=== PATIENT | male | born 1945 | race Caucasian/White ===

== ENCOUNTER 2019-06-11 05:30 | Day surgery (SDC) | payer MEDICARE ==
[~2019-06-11] VITALS: Ht 172.7 cm; Wt 89.8 kg
[~2019-06-11 05:30] MED LIST: AMLO5TAB6 PO; ATOR1TAB21 PO; BISO5TAB2 PO; GABA-1171 PO; GLYB5TA PO; INVO100T PO; METF10004 PO; PIOG1TAB55 PO; TRAD5TAB PO
[2019-06-11] MEDS ORDERED: LR 1,000 ML IV ONE (06:00)
[2019-06-11] MEDS ORDERED: ceFAZolin SOD 2 GM in IV 1 EA IV ONE (06:00)
[2019-06-11] MEDS ORDERED: BACITRACIN OINT 30GM As Ordered ONE (07:10)
[2019-06-11] MEDS ORDERED: MIDAZOLAM INJ 2 MG/2 ML VIAL (J2250) As Ordered ONE (07:19)
[2019-06-11] MEDS ORDERED: propofoL 200 MG/20 ML VIAL As Ordered ONE (07:19)
[2019-06-11] MEDS ORDERED: dexameTHASONE 4 MG/ML 1ML VIAL (J1100) As Ordered ONE (07:19)
[2019-06-11] MEDS ORDERED: fentaNYL 100 MCG/2 ML INJECTION (J3010) As Ordered ONE (07:19)
[2019-06-11] MEDS ORDERED: ONDANSETRON 4MG/2ML VIAL (J2405) As Ordered ONE (07:19)
[2019-06-11] MEDS ORDERED: LIDOCAINE 2% INJ 100 MG/5 ML SDV (FOR ANES.) As Ordered ONE (07:19)
[2019-06-11] MEDS ORDERED: ePHEDrine SULFATE 25 MG/5 ML(5MG/ML) SYRINGE As Ordered ONE (08:05)
[2019-06-11] MEDS ORDERED: PHENYLephrine HCL 500 MCG/5 ML (100MCG/ML) SYRINGE (J2370) As Ordered ONE (08:05)
[2019-06-11] MEDS ORDERED: METOCLOPRAMIDE INJ 10MG/2ML VIAL (J2765) IV PRN (09:15)
[2019-06-11] MEDS ORDERED: fentaNYL 100 MCG/2 ML INJECTION (J3010) IV PRN (09:15)
[2019-06-11] MEDS ORDERED: LR 1,000 ML IV SCH (09:15)
[2019-06-11] MEDS ORDERED: ONDANSETRON 4MG/2ML VIAL (J2405) IV PRN (09:15)
[2019-06-11] MEDS ORDERED: PERCOCET 5MG/325MG TAB PO PRN ×2 (09:15→09:30)
[2019-06-11 10:35] VITALS: BP 125/58
--- NOTE | 2019-06-11 18:12 | RO ---
DATE OF PROCEDURE: 06/11/2019 PREPROCEDURE DIAGNOSIS: Phimosis. POSTPROCEDURE DIAGNOSIS: Phimosis. PROCEDURE: Circumcision. SURGEON: Wagner Suh MD IRON GUARDRAIL INSTALLER: None. ANESTHESIA: General. OPERATIVE INDICATIONS: This is a 73-year-old male who has been having difficulty retracting his foreskin due to a tight phimotic ring. He was brought to the operating room today for circumcision. DESCRIPTION OF PROCEDURE: The patient was brought to the operating room and general anesthesia induced. Prophylactic antibiotics were infused. He was then placed in the supine position and prepped and draped in the usual sterile fashion. At this point, circumcising incisions were made with the foreskin retracted over the glans at the level of the coronal sulcus and then also on the foreskin with it retracted downward also at the level of the coronal sulcus. All the skin in between the circumcising incisions was then excised using the electrocautery. Any small bleeding blood vessels were controlled with electrocautery. Once satisfied with hemostasis, the skin of the penile shaft was then reapproximated to the glans penis using interrupted #2-0 chromic sutures. Once the skin was reapproximated, dressings were applied and this marked the conclusion of the procedure. Dressings included a Prasanna followed by a Coban dressing wrapped around the penile shaft. The patient was then awakened from anesthesia and transported to the recovery room in stable condition. Estimated blood loss: 10 mL. Complications: None. Specimens: Foreskin. PLAN: The patient will leave his dressings on for two days and then remove them in the shower. He will followup in the urology clinic in approximately 2-3 weeks for a postoperative visit.
== END 2019-06-11 11:50 | disposition home or self-care (01) ==
LOC: M SDC 05:30
PROVIDERS: ATTEND Urology
DX: N47.1 Phimosis (principal); I10 Essential (primary) hypertension; E78.5 Hyperlipidemia, unspecified; E11.9 Type 2 diabetes mellitus without complications; Z79.82 Long term (current) use of aspirin; Z79.84 Long term (current) use of oral hypoglycemic drugs; Z79.899 Other long term (current) drug therapy
CPT/HCPCS: 54161; 88304; J0690; J1100; J2250; J2370; J2405; J3010

== ENCOUNTER 2022-09-24 06:31 | Day surgery (SDC) | payer MEDICARE ==
[~2022-09-24] VITALS: Ht 177.8 cm; Wt 74.7 kg
[~2022-09-24 06:31] MED LIST changes: +AMLO1TAB24 PO; -AMLO5TAB6 PO; +BISO1TAB18 PO; -BISO5TAB2 PO; -GLYB5TA PO; +GLYB5TAB6 PO; +MECL-86 PO; +SEMA2PEN SQ
[2022-09-24] MEDS ORDERED: LIDOCAINE 2% 100MG/5ML SDV (FOR ANES.) As Ordered ONE (06:55)
[2022-09-24] MEDS ORDERED: propofoL 200 MG/20 ML VIAL As Ordered ONE (06:55)
[2022-09-24] MEDS ORDERED: ONDANSETRON 4MG 2ML VIAL As Ordered ONE (06:55)
[2022-09-24] MEDS ORDERED: FARX1TAB3 PO (07:59)
[2022-09-24] MEDS ORDERED: LR 1,000 ML IV SCH ×2 (08:00→11:00)
[2022-09-24] MEDS ORDERED: BACITRACIN OINTMENT 30GM TUBE As Ordered ONE (08:16)
[2022-09-24] MEDS ORDERED: LIDOCAINE W/EPINEPHRINE 1% 20ML VIAL As Ordered ONE (08:17)
[2022-09-24] MEDS ORDERED: fentaNYL 100 MCG/2 ML INJECTION As Ordered ONE (08:25)
[2022-09-24] MEDS ORDERED: ACETAMINOPHEN 1000MG 100ML IV BAG As Ordered ONE (08:44)
[2022-09-24] MEDS ORDERED: ROCURONIUM BROMIDE 50MG/5ML VIAL As Ordered ONE ×2 (08:48→09:58)
[2022-09-24] MEDS ORDERED: OXYMETAZOLINE 0.05% NASAL SPRAY (AFRIN) As Ordered ONE (08:50)
[2022-09-24] MEDS ORDERED: PHENYLephrine 500MCG 5ML (100MCG/ML) SYRINGE As Ordered ONE (09:03)
[2022-09-24] MEDS ORDERED: ePHEDrine SULFATE 25 MG/5 ML(5MG/ML) SYRINGE As Ordered ONE (09:03)
[2022-09-24] MEDS ORDERED: SUGAMMADEX SODIUM 500 MG/5 ML VIAL (BRIDION) As Ordered ONE (09:06)
[2022-09-24] MEDS ORDERED: CEFUROXIME 1.5 GM As Ordered ONE (10:02)
[2022-09-24] MEDS ORDERED: fentaNYL 100 MCG/2 ML INJECTION IV PRN (10:40)
[2022-09-24] MEDS ORDERED: MORPHINE 2 MG/ML 1ML VIAL IV PRN (10:40)
[2022-09-24] MEDS ORDERED: oxyCODONE 5MG TAB PO PRN (10:40)
[2022-09-24] MEDS ORDERED: ONDANSETRON 4MG 2ML VIAL IV PRN (10:40)
[2022-09-24 12:47] VITALS: BP 111/65
== END 2022-09-24 12:47 | disposition home or self-care (01) ==
LOC: M SDC 06:31
PROVIDERS: ATTEND Otolaryngology
DX: C44.229 Squamous cell carcinoma of skin of left ear and external auricular canal (principal); C44.02 Squamous cell carcinoma of skin of lip; L82.1 Other seborrheic keratosis; I10 Essential (primary) hypertension; E11.9 Type 2 diabetes mellitus without complications; E78.5 Hyperlipidemia, unspecified; F17.210 Nicotine dependence, cigarettes, uncomplicated; Z79.84 Long term (current) use of oral hypoglycemic drugs; Z79.899 Other long term (current) drug therapy
CPT/HCPCS: 11442; 11642; 11643; 88305; J0131; J0697; J1100; J2370; J2405; J3010

== ENCOUNTER → 2023-10-23 | Outpatient (REF) | payer MEDICARE ==
[~2023-10-23] MED LIST changes: +FARX1TAB3 PO
== END ==
LOC: M SFHCDERM 16:49
PROVIDERS: ATTEND Dermatology
DX: T14.90XD Injury, unspecified, subsequent encounter (principal)

== ENCOUNTER → 2023-11-06 | Outpatient (REF) | payer MEDICARE | LOC: M SFHCDERM 17:32 | PROVIDERS: ATTEND Dermatology | DX: T14.90XD Injury, unspecified, subsequent encounter (principal) ==

== ENCOUNTER → 2024-07-01 | Outpatient (REF) | payer MEDICARE | LOC: M SFHCDERM 17:20 | PROVIDERS: ATTEND Dermatology | DX: D48.9 Neoplasm of uncertain behavior, unspecified (principal) ==